=== PATIENT | female | born 1950 | race Caucasian/White ===

== ENCOUNTER → 2019-04-16 | Outpatient (CLI) | payer MEDICARE, BC ==
[2019-04-16 12:16] LABS: EOS # 0.1 (0.04-0.40); EOS % 1.6 % (1.0-5.0); HEMATOCRIT 35.8 % (37.0-47.0); HEMOGLOBIN 11.4 g/dL (12.5-16.0); LYMPH# 1.7 (1.50-4.00); MEAN CELL VOLUME 90 fl (78-100); MEAN CORPUSCULAR HEMOGLOBIN 29 pg (27-31); MEAN CORPUSCULAR HGB CONC 32 g/dL (33-37); MEAN PLATELET VOLUME 10.3 fl (7.4-10.4); MONO # 0.7 (0.20-0.80); NEU # 6.2 (1.40-6.50); PLATELET COUNT 275 K/mm3 (130-400); RED BLOOD COUNT 3.99 M/mm3 (4.10-5.30); RED CELL DISTRIBUTION WIDTH 14.5 % (11.5-14.5); WHITE BLOOD COUNT 8.8 K/mm3 (4.8-10.8)
[2019-04-16 12:31] LABS: ALBUMIN 4.2 g/dL (3.4-4.8)
[2019-04-16 12:32] LABS: POTASSIUM 3.7 mmol/L (3.5-5.1)
[2019-04-16 12:33] LABS: CALCIUM 10.4 mg/dL (8.3-10.5)
[2019-04-16 12:34] LABS: TOTAL PROTEIN 7.7 g/dL (6.2-8.1)
[2019-04-16 12:36] LABS: TOTAL BILIRUBIN 0.4 mg/dL (0.2-1.2)
== END ==
LOC: RAD 11:54
PROVIDERS: Nurse Practitioner Family
DX: M13.841 Other specified arthritis, right hand (principal); M79.89 Other specified soft tissue disorders

== ENCOUNTER → 2019-04-18 | Outpatient (CLI) | payer MEDICARE, BC | LOC: LAB 14:53 | DX: L02.413 Cutaneous abscess of right upper limb (principal) ==

== ENCOUNTER 2021-07-21 16:52 | Emergency (ER) | payer MEDICARE, BC ==
[~2021-07-21] VITALS: Ht 172.7 cm; Wt 85.4 kg
[2021-07-21 17:16] LABS: BASO # 0.06 K/mm3 (0.02-0.10); EOS # 0.31 K/mm3 (0.04-0.40); EOS % 2.8 % (1.0-5.0); HEMATOCRIT 33.3 % (37.0-47.0); HEMOGLOBIN 10.3 g/dL (12.5-16.0); LYMPH# 2.23 K/mm3 (1.50-4.00); MEAN CELL VOLUME 88 fl (78-100); MEAN CORPUSCULAR HEMOGLOBIN 27 pg (27-31); MEAN CORPUSCULAR HGB CONC 31 g/dL (33-37); MEAN PLATELET VOLUME 10.1 fl (7.4-10.4); MONO # 0.75 K/mm3 (0.20-0.80); NEU # 7.77 K/mm3 (1.40-6.50); PLATELET COUNT 300 K/mm3 (130-400); RED BLOOD COUNT 3.79 M/mm3 (4.10-5.30); RED CELL DISTRIBUTION WIDTH 14.2 % (11.5-14.5); WHITE BLOOD COUNT 11.1 K/mm3 (4.8-10.8)
[2021-07-21] MEDS ORDERED: BENADRYL PO (17:23)
[2021-07-21] MEDS ORDERED: ADVIL 200MG TA200 MG PO (17:23)
[2021-07-21 17:26] LABS: ALBUMIN 4.1 g/dL (3.4-4.8)
[2021-07-21 17:27] LABS: POTASSIUM 3.7 mmol/L (3.5-5.1); SODIUM 140 mmol/L (136-145)
[2021-07-21 17:28] LABS: CALCIUM 9.5 mg/dL (8.3-10.5)
[2021-07-21 17:29] LABS: GLUCOSE 108 mg/dL (65-105); TOTAL PROTEIN 8.1 g/dL (6.2-8.1)
[2021-07-21 17:30] LABS: CARBON DIOXIDE 22 mmol/L (23-31)
[2021-07-21 17:31] LABS: TOTAL BILIRUBIN 0.5 mg/dL (0.2-1.2)
[2021-07-21 17:34] LABS: AST-SGOT 16 U/L (5-34)
[2021-07-21 17:35] LABS: ALT/SGPT 13 U/L (0-55)
[2021-07-21 17:38] LABS: URINE APPEARANCE CLEAR; URINE BILIRUBIN NEGATIVE (NEGATIVE); URINE BLOOD 50 ery/uL (NEGATIVE); URINE COLOR YELLOW; URINE GLUCOSE NEGATIVE (NEGATIVE); URINE KETONE NEGATIVE (NEGATIVE); URINE LEUKOCYTE ESTERASE TRACE (NEGATIVE); URINE MUCUS PRESENT (NOT PRESENT); URINE NITRATE NEGATIVE (NEGATIVE); URINE PROTEIN(semi-quant) 2+ (NEGATIVE); URINE UROBILINOGEN NORMAL (NORMAL)
[2021-07-21 17:42] LABS: TROPONIN-I < 0.030 ng/mL (<0.030)
[2021-07-21] MEDS ORDERED: METOPROLOL SUCC50 M1 PO (20:28)
[2021-07-21] MEDS ORDERED: ELIQUIS5 MG PO (20:28)
[2021-07-21 20:52] VITALS: BP 149/92
== END 2021-07-21 20:52 | disposition home or self-care (01) ==
LOC: ED 16:52
PROVIDERS: Physician Assistant
DX: I48.91 Unspecified atrial fibrillation (principal); H05.243 Constant exophthalmos, bilateral; E07.89 Other specified disorders of thyroid; I10 Essential (primary) hypertension
CPT/HCPCS: Q9967

== ENCOUNTER → 2021-07-21 | Outpatient (CLI) | payer MEDICARE, BC ==
[~2021-07-21] MED LIST: ADVIL 200MG TA200 MG PO; BENADRYL PO; ELIQUIS5 MG PO; METOPROLOL SUCC50 M1 PO
== END ==
LOC: LAB 16:36
DX: Z20.822 Contact with and (suspected) exposure to COVID-19 (principal)

== ENCOUNTER → 2021-07-29 | Outpatient (CLI) | payer MEDICARE, BC ==
[~2021-07-29] MED LIST changes: +HCTZ 25MG25 MG PO; +METOPROLOL SUC100 M1 PO; +XARELTO20 MG PO
== END ==
LOC: RAD 08:40
DX: C69.60 Malignant neoplasm of unspecified orbit (principal); E04.9 Nontoxic goiter, unspecified; J98.59 Other diseases of mediastinum, not elsewhere classified; J90 Pleural effusion, not elsewhere classified
CPT/HCPCS: Q9967

== ENCOUNTER 2021-08-07 19:02 | Emergency (ER) | payer MEDICARE, BC ==
[~2021-08-07 19:02] MED LIST changes: -HCTZ 25MG25 MG PO; -METOPROLOL SUC100 M1 PO; -XARELTO20 MG PO
[2021-08-07] MEDS ORDERED: XARELTO20 MG PO (19:12)
[2021-08-07] MEDS ORDERED: METOPROLOL SUC100 M1 PO (19:12)
[2021-08-07] MEDS ORDERED: HCTZ 25MG25 MG PO (20:40)
[2021-08-07 21:18] VITALS: BP 121/71
== END 2021-08-07 21:21 | disposition home or self-care (01) ==
LOC: ED 19:02
DX: I10 Essential (primary) hypertension (principal); I48.91 Unspecified atrial fibrillation; Z79.01 Long term (current) use of anticoagulants; Z79.899 Other long term (current) drug therapy
CPT/HCPCS: J0360

== ENCOUNTER → 2021-12-06 | Outpatient (CLI) | payer MEDICARE, BC ==
[~2021-12-06] MED LIST changes: +HCTZ 25MG25 MG PO; +METOPROLOL SUC100 M1 PO; +XARELTO20 MG PO
== END ==
LOC: LAB 10:27
DX: E21.3 Hyperparathyroidism, unspecified (principal)

== ENCOUNTER → 2022-01-18 | Outpatient (CLI) | payer MEDICARE, BC | LOC: LAB 09:35 | DX: E04.2 Nontoxic multinodular goiter (principal) ==

== ENCOUNTER 2022-08-07 13:13 | Emergency (ER) | payer MEDICARE, BC ==
[~2022-08-07] VITALS: Ht 172.7 cm; Wt 84.0 kg
[2022-08-07] MEDS ORDERED: LEVOTHYROXINE125 MCG PO (13:21)
[2022-08-07 14:09] LABS: BASO # 0.04 K/mm3 (0.02-0.10); EOS # 0.08 K/mm3 (0.04-0.40); HEMATOCRIT 31.9 % (37.0-47.0); HEMOGLOBIN 10.3 g/dL (12.5-16.0); LYMPH# 0.82 K/mm3 (1.50-4.00); MEAN CELL VOLUME 93 fl (78-100); MEAN CORPUSCULAR HEMOGLOBIN 30 pg (27-31); MEAN CORPUSCULAR HGB CONC 32 g/dL (33-37); MEAN PLATELET VOLUME 10.4 fl (7.4-10.4); MONO # 0.61 K/mm3 (0.20-0.80); NEU # 6.29 K/mm3 (1.40-6.50); PLATELET COUNT 161 K/mm3 (130-400); RED BLOOD COUNT 3.43 M/mm3 (4.10-5.30); RED CELL DISTRIBUTION WIDTH 13.3 % (11.5-14.5); WHITE BLOOD COUNT 7.9 K/mm3 (4.8-10.8)
[2022-08-07 14:13] LABS: POTASSIUM 4.2 mmol/L (3.5-5.1)
[2022-08-07 14:14] LABS: CALCIUM 9.5 mg/dL (8.3-10.5)
[2022-08-07 15:12] LABS: D-DIMER 9.57 mg/L FEU (0.15-0.50)
[2022-08-07 15:58] VITALS: BP 139/74
== END 2022-08-07 16:00 | disposition home or self-care (01) ==
LOC: ED 13:13
PROVIDERS: Family Medicine
DX: M79.661 Pain in right lower leg (principal); R79.1 Abnormal coagulation profile
CPT/HCPCS: J1650

== ENCOUNTER → 2022-08-08 | Outpatient (CLI) | payer MEDICARE, BC ==
[~2022-08-08] MED LIST changes: +LEVOTHYROXINE125 MCG PO
== END ==
LOC: RAD 09:57
DX: I82.401 Acute embolism and thrombosis of unspecified deep veins of right lower extremity (principal); R79.1 Abnormal coagulation profile

== ENCOUNTER → 2022-08-29 | Outpatient (CLI) | payer MEDICARE, BC ==
[2022-08-29 10:22] LABS: BASO # 0.02 K/mm3 (0.02-0.10); EOS # 0.14 K/mm3 (0.04-0.40); EOS % 2.6 % (1.0-5.0); HEMATOCRIT 33.1 % (37.0-47.0); HEMOGLOBIN 10.5 g/dL (12.5-16.0); LYMPH# 1.15 K/mm3 (1.50-4.00); MEAN CELL VOLUME 95 fl (78-100); MEAN CORPUSCULAR HEMOGLOBIN 30 pg (27-31); MEAN CORPUSCULAR HGB CONC 32 g/dL (33-37); MEAN PLATELET VOLUME 10.9 fl (7.4-10.4); MONO # 0.43 K/mm3 (0.20-0.80); NEU # 3.59 K/mm3 (1.40-6.50); PLATELET COUNT 191 K/mm3 (130-400); RED BLOOD COUNT 3.48 M/mm3 (4.10-5.30); RED CELL DISTRIBUTION WIDTH 13.4 % (11.5-14.5); WHITE BLOOD COUNT 5.3 K/mm3 (4.8-10.8)
[2022-08-29 10:23] LABS: POTASSIUM 4.5 mmol/L (3.5-5.1)
[2022-08-29 10:24] LABS: CALCIUM 9.4 mg/dL (8.3-10.5)
== END ==
LOC: LAB 08:54
PROVIDERS: Nurse Practitioner
DX: I82.511 Chronic embolism and thrombosis of right femoral vein (principal)

== ENCOUNTER → 2023-11-27 | Outpatient (CLI) | payer MEDICARE, BC ==
[2023-11-27 10:06] LABS: BASO # 0.03 K/mm3 (0.02-0.10); EOS # 0.11 K/mm3 (0.04-0.40); EOS % 1.7 % (1.0-5.0); HEMATOCRIT 35.8 % (37.0-47.0); HEMOGLOBIN 11.3 g/dL (12.5-16.0); LYMPH# 1.55 K/mm3 (1.50-4.00); MEAN CELL VOLUME 97 fl (78-100); MEAN CORPUSCULAR HEMOGLOBIN 31 pg (27-31); MEAN CORPUSCULAR HGB CONC 32 g/dL (33-37); MEAN PLATELET VOLUME 10.3 fl (7.4-10.4); MONO # 0.49 K/mm3 (0.20-0.80); NEU # 4.14 K/mm3 (1.40-6.50); PLATELET COUNT 189 K/mm3 (130-400); RED BLOOD COUNT 3.68 M/mm3 (4.10-5.30); WHITE BLOOD COUNT 6.3 K/mm3 (4.8-10.8)
[2023-11-27 10:15] LABS: ALBUMIN 4.1 g/dL (3.4-4.8)
[2023-11-27 10:16] LABS: CALCIUM 9.7 mg/dL (8.3-10.5)
[2023-11-27 10:17] LABS: TOTAL PROTEIN 7.4 g/dL (6.2-8.1)
[2023-11-27 10:19] LABS: TOTAL BILIRUBIN 0.4 mg/dL (0.2-1.2)
[2023-11-27 10:24] LABS: MAGNESIUM 2.07 mg/dL (1.60-2.60)
[2024-01-02 18:01] LABS: CREATININE OTHER SOURCE 136.1
== END ==
LOC: LAB 09:52
PROVIDERS: Family Medicine
DX: N18.31 Chronic kidney disease, stage 3a (principal)

== ENCOUNTER → 2023-12-28 | Outpatient (CLI) | payer MEDICARE, BC | LOC: LAB 09:07 | DX: C73 Malignant neoplasm of thyroid gland (principal) ==

== ENCOUNTER → 2024-02-13 | Outpatient (CLI) | payer MEDICARE, BC | LOC: AMSURD 12:32 | DX: R00.8 Other abnormalities of heart beat (principal) ==

== ENCOUNTER → 2024-06-24 | Outpatient (CLI) | payer MEDICARE, BC ==
[2024-06-24 13:28] LABS: CALCIUM 10.5 mg/dL (8.3-10.5)
[2024-06-24 13:35] LABS: MAGNESIUM 2.18 mg/dL (1.60-2.60)
== END ==
LOC: LAB 13:06
PROVIDERS: Nurse Practitioner Family
DX: R25.2 Cramp and spasm (principal)